=== PATIENT | male | born 1970 | race Two or more races ===

== ENCOUNTER 2022-09-13 10:25 | Emergency (ER) | payer OTHER ==
[~2022-09-13] VITALS: Ht 172.7 cm; Wt 67.1 kg
== END 2022-09-13 13:22 | disposition home or self-care (01) ==
LOC: ER 10:25
DX: S09.90XA Unspecified injury of head, initial encounter (principal); S01.81XA Laceration without foreign body of other part of head, initial encounter; W18.39XA Other fall on same level, initial encounter; Y93.9 Activity, unspecified; Y92.9 Unspecified place or not applicable; Y99.9 Unspecified external cause status